=== PATIENT | female | born 1930 | race Asian ===

== ENCOUNTER → 2017-08-24 | Outpatient (CLI) | payer OTHER ==
--- NOTE | ~2017-08-24 | 2DMMODE ---
[facility] [place] [address] 2 D/M-MODE ECHOCARDIOGRAM Name: MAGGIE GARCIA Room #: [facility]#: [id number] Admission: 08/24/17 Attend Phys: Win Sharma MD Discharge: Date of : [birth year] Date of Service: 08/24/17 1407 Report #: [id number] THIS REPORT FOR: //name// APPROVED REPORT Study performed: 08/24/2017 13:10:09 EXAM: Comprehensive 2D, Doppler, and color-flow Echocardiogram Patient Location: Echo lab Status: routine BSA: 1.20 BP: 140/70 mmHg Other Information Study Quality: Adequate Indications Hx of AAA 2D Dimensions RVDd: 21.82 mm LVEF(%): 70.99 (>50%) IVSd: 8.66 (7-11mm) LVOT Diam: 14.69 (18-24mm) LVDd: 39.39 mm PWd: 9.80 (7-11mm) Ascending Ao: 34.34 (22-36mm) LVDs: 23.72 (25-40mm) Aortic Root: 26.88 mm IVC: 6.00 mm Phan's LVEF: 70.99 % Volumes Left Atrial Volume (Systole) Single Plane 4CH: 14.15 mL Single Plane 2CH: 20.27 mL LA ESV Index: 17.00 mL/m2 Aortic Valve AoV Peak Ascencion.: 1.17 m/s AO Peak Gr.: 7.23 mmHg LVOT Max P.90 mmHg LVOT Max V: 0.85 m/s VINICIO Vmax: 1.24 cm2 Mitral Valve E/A Ratio: 0.7 MV Decel. Time: 296.14 ms MV E Max Ascencion.: 0.35 m/s [facility] [address] [address] 2 D/M-MODE ECHOCARDIOGRAM Name: MAGGIE GARCIA Room #: [facility]#: [id number] Admission: 08/24/17 Attend Phys: Win Sharma MD Discharge: Date of : [birth year] Date of Service: 08/24/17 1407 Report #: [id number] MV A Ascencion.: 0.53 m/s MV PHT: 85.88 ms IVRT: 134.95 ms Pulmonary Valve PV Peak Ascencion.: 0.50 m/s PV Peak Gr.: 1.00 mmHg Tricuspid Valve TR Peak Ascencion.: 2.13 m/s RAP Estimate: 5.00 mmHg TR Peak Gr.: 18.10 mmHg Left Ventricle The left ventricle is normal size. There is normal left ventricular wall thickness. The left ventricular systolic function is normal. The left ventricular ejection fraction is within the normal range. LVEF is 55%. Mild diastolic dysfunction is present (impaired relaxation pattern). Right Ventricle The right ventricle is normal size. The right ventricular systolic function is normal. Atria The left atrium size is normal. The right atrium size is normal. Aortic Valve Aortic valve is calcified. Moderate to severe aortic regurgitation There is no aortic valvular stenosis. Mitral Valve The mitral valve is normal in structure. Mild mitral regurgitation. No evidence of mitral valve stenosis. Tricuspid Valve The tricuspid valve is normal in structure. There is trace tricuspid regurgitation. The right atrial pressure is estimated at 5 mmHg. PAP is estimated at 23 mmHg. Pulmonic Valve The pulmonary valve is normal in structure. Trace pulmonic regurgitation. Great Vessels The aortic root is normal in size. IVC is normal in size and collapses >50% with inspiration. [facility] [address] [place] [address] 2 D/M-MODE ECHOCARDIOGRAM Name: MAGGIE GARCIA Room #: [facility]#: [id number] Admission: 08/24/17 Attend Phys: Win Sharma MD Discharge: Date of : [birth year] Date of Service: 08/24/17 1407 Report #: [id number] <Conclusion> The left ventricle is normal size. There is normal left ventricular wall thickness. The left ventricular systolic function is normal. The right ventricle is normal size. The left atrium size is normal. Moderate to severe aortic regurgitation Mild mitral regurgitation. There is trace tricuspid regurgitation. The right atrial pressure is estimated at 5 mmHg. PAP is estimated at 23 mmHg. <ELECTRONICALLY SIGNED> By: Win Sharma MD 08/24/171406 06 06 Win Sharma MD /INF
== END ==
LOC: CV 12:50
DX: I08.0 Rheumatic disorders of both mitral and aortic valves (principal); I71.4 Abdominal aortic aneurysm, without rupture